=== PATIENT | female | born 1940 | race Caucasian/White ===

== ENCOUNTER → 2016-12-04 | Outpatient (CLI) | payer OTHER ==
[~2016-12-04] MED LIST: ASPI325T OR; ATEN100T OR; FISH300C2 OR; GLUC1000 OR; LISI20TA5 OR; LOVA40TA OR; MEGE40TA2 OR; OSTEO BI FLEX OR; TRIM OR
--- NOTE | 2016-12-04 13:14 | REPMRS ---
Patient History The patient states she had a clinical breast exam in 11/2016. Patient is postmenopausal and has history of endometrial cancer at age 69. Family history of prostate cancer in brother at age 50 or over. Digital Woman Screen Mammo: December 04, 2016 - Exam #: [id number] Bilateral CC and MLO view(s) were taken. Technologist: Bisi Khan, Technologist Prior study comparison: December 03, 2015, digital woman screen mammo performed at [facility]. November 16, 2014, digital woman screen mammo performed at [facility]. FINDINGS: There are scattered fibroglandular densities. There has been no change in the appearance of the mammogram from the prior studies. There is a mild amount of residual fibroglandular tissue which is fairly symmetric. There is no interval development of dominant mass, architectural distortion, or clustered microcalcification suggestive of malignancy. ASSESSMENT: BI-RADS/ACR category 1 mammogram. Negative. Recommendation Routine screening mammogram in 1 year (for women over age 40). This mammogram was interpreted with the aid of an FDA-approved computer-aided dectection system. Electronically Signed By: Ashok Nowak MD 12/04/16 1761
== END ==
LOC: M WHC 10:15
PROVIDERS: ATTEND Nurse Practitioner Family
DX: Z01.419 Encounter for gynecological examination (general) (routine) without abnormal findings (principal); Z12.31 Encounter for screening mammogram for malignant neoplasm of breast; Z12.12 Encounter for screening for malignant neoplasm of rectum; Z78.0 Asymptomatic menopausal state; Z85.42 Personal history of malignant neoplasm of other parts of uterus
CPT/HCPCS: 82270; G0101; G0123; G0202

== ENCOUNTER → 2016-12-04 | Outpatient (REF) | payer OTHER | LOC: M SFHCWAGY 10:36 | PROVIDERS: ATTEND Nurse Practitioner Family | DX: Z01.419 Encounter for gynecological examination (general) (routine) without abnormal findings (principal); Z12.12 Encounter for screening for malignant neoplasm of rectum; L29.2 Pruritus vulvae; Z85.44 Personal history of malignant neoplasm of other female genital organs ==

== ENCOUNTER → 2016-12-30 | Outpatient (CLI) | payer OTHER ==
[2016-12-30 09:46] LABS: ANION GAP 10 MEQ/L (8-16); BLOOD UREA NITROGEN 20 MG/DL (7-18); CALCIUM LEVEL 9.2 MG/DL (8.8-10.2); CARBON DIOXIDE LEVEL 29 MEQ/L (21-32); CHLORIDE LEVEL 103 MEQ/L (98-107); CREATININE FOR GFR 0.84 MG/DL (0.55-1.02); GLOMERULAR FILTRATION RATE > 60.0 (>39); GLUCOSE, FASTING 138 MG/DL (83-110); POTASSIUM SERUM 4.4 MEQ/L (3.5-5.1); SODIUM LEVEL 142 MEQ/L (136-145)
--- NOTE | 2016-12-30 13:36 | ECGEPIP ---
Stationary ECG Study [facility] Test Date: 2016-12-30 Pat Name: GIANCARLO BELTRÁN Department: Room: - Gender: F Manufacturing Software Engineer: [id number] : [id number] Requested By: SUZETTE Thomas Order Number: [id number] Reading MD: Neal Monique Measurements Intervals [place] Rate: 71 P: 0 MT: 219 QRS: -13 QRSD: 110 T: 18 QT: 354 QTc: 387 Interpretive Statements SINUS RHYTHM WITH FIRST DEGREE AV BLOCK ANTERIOR MYOCARDIAL INFARCTION, OF INDETERMINATE AGE INFERIOR MYOCARDIAL INFARCTION, PROBABLY OLD No prior ECG available for comparison at the time of interpretation. Electronically Signed On 12-30-2016 13:36:04 EDT by Neal Monique
--- NOTE | 2016-12-31 09:40 | REP ---
CHEST X-RAY PA AND LATERAL: 12/30/2016. Comparison: 03/30/2010 portable chest, 05/12/2009 chest x-ray. Clinical history: Coronary artery disease. Findings: There are sternotomy wires and clips in the mediastinum from prior CABG. Lungs are hyperinflated on the lateral view. There is some cardiomegaly with left atrial and ventricular enlargement. There is no vascular redistribution or pulmonary edema. No effusion, infiltrate, atelectasis or mass. There is no dense consolidation. Minor lateral pleural thickening and apical pleural thickening noted. Bones show degenerative changes in the spine and shoulders without compression deformity. No free air. Impression: 1. Mild cardiomegaly with left atrial and ventricular enlargement and prior CABG. No effusion, edema or acute infiltrate. Signed by Lit Lackey MD 12/31/2016 05:52 P
== END ==
LOC: M LAB 08:43
PROVIDERS: ATTEND Ophthalmology
DX: H25.12 Age-related nuclear cataract, left eye (principal); E78.5 Hyperlipidemia, unspecified; E11.9 Type 2 diabetes mellitus without complications; I51.7 Cardiomegaly; Z95.1 Presence of aortocoronary bypass graft

== ENCOUNTER 2017-05-19 18:33 | Emergency (ER) | payer OTHER ==
[~2017-05-19] VITALS: Ht 167.6 cm; Wt 107.0 kg
[2017-05-19] MEDS ORDERED: GLIP2.5T6 PO (18:48)
[2017-05-19] MEDS ORDERED: ALLO10TA PO (18:48)
[2017-05-19] MEDS ORDERED: ASPI81TA85 PO (18:48)
[2017-05-19] MEDS ORDERED: ESCI10TA2 PO (18:48)
[2017-05-19] MEDS ORDERED: CARV25TA PO (18:48)
[2017-05-19] MEDS ORDERED: LOSA25TA8 PO (18:48)
[2017-05-19] MEDS ORDERED: PERCOCET 5MG/325MG TAB PO ONE ×2 (19:00→21:15)
--- NOTE | 2017-05-19 19:26 | REP ---
Clinical: Trauma. Technique: Axial noncontrast images through the facial bones to include the mandible with coronal and sagittal re-formations. Findings: There is a large hematoma and contusion overlying the frontal bone and right periorbital soft tissue. A subtle nasal bone fracture is suggested. The remainder of the osseous structures appear intact without further evidence for acute fracture. Specifically, the bilateral zygomatic arches and mandible including bilateral temporomandibular joints appear normal and symmetric. The sinuses and mastoid air cells are all well aerated and clear without fluid level to suggest occult trauma. The bilateral orbits including the globes and intraconal contents appear symmetric and normal. Impression: 1. Hematoma and traumatic infiltration to the subcutaneous tissues overlying the frontal bone and extending to the right periorbital region. 2. Subtle nasal bone fractures suggested. Signed by Mayur Umanzor MD 05/19/2017 07:17 P
[2017-05-19 21:17] VITALS: BP 168/72
== END 2017-05-19 21:20 | disposition home or self-care (01) ==
LOC: M ED 18:33
DX: S02.2XXA Fracture of nasal bones, initial encounter for closed fracture (principal); S00.83XA Contusion of other part of head, initial encounter; W01.198A Fall on same level from slipping, tripping and stumbling with subsequent striking against other object, initial encounter; Y92.099 Unspecified place in other non-institutional residence as the place of occurrence of the external cause; Y93.01 Activity, walking, marching and hiking; Y99.9 Unspecified external cause status

== ENCOUNTER → 2017-12-04 | Outpatient (REF) | payer OTHER | LOC: M SFHCWAGY 10:56 | DX: Z01.419 Encounter for gynecological examination (general) (routine) without abnormal findings (principal); Z85.44 Personal history of malignant neoplasm of other female genital organs ==

== ENCOUNTER → 2017-12-04 | Outpatient (CLI) | payer OTHER | LOC: M WHC 10:20 | DX: Z12.31 Encounter for screening mammogram for malignant neoplasm of breast (principal); Z78.0 Asymptomatic menopausal state; Z80.41 Family history of malignant neoplasm of ovary; Z85.42 Personal history of malignant neoplasm of other parts of uterus; N81.10 Cystocele, unspecified; R32 Unspecified urinary incontinence; Z08 Encounter for follow-up examination after completed treatment for malignant neoplasm; Z12.4 Encounter for screening for malignant neoplasm of cervix; Z12.12 Encounter for screening for malignant neoplasm of rectum; Z90.710 Acquired absence of both cervix and uterus; Z85.44 Personal history of malignant neoplasm of other female genital organs | CPT/HCPCS: 77067; G0123 ==

== ENCOUNTER → 2018-09-09 | Outpatient (REF) | payer OTHER, MEDICARE ==
[~2018-09-09] MED LIST changes: +ALLO10TA PO; +ASPI81TA85 PO; +CARV25TA PO; +ESCI10TA2 PO; +GLIP2.5T6 PO; +LOSA25TA14 PO
== END ==
LOC: M SFHCPLAZ 10:11
PROVIDERS: ATTEND Dermatology
DX: C44.329 Squamous cell carcinoma of skin of other parts of face (principal); D22.39 Melanocytic nevi of other parts of face
CPT/HCPCS: 11102; 11103; 17000; 17003; 88305; G0463

== ENCOUNTER → 2018-10-22 | Outpatient (REF) | payer MEDICARE | LOC: M SFHCPLAZ 17:38 | PROVIDERS: ATTEND Dermatology | DX: D04.30 Carcinoma in situ of skin of unspecified part of face (principal) ==

== ENCOUNTER → 2019-12-16 | Outpatient (REF) | payer MEDICARE ==
[~2019-12-16] MED LIST changes: -ASPI81TA85 PO; +ASPI81TA86 PO
[2019-12-16 15:23] LABS: APPEARANCE, URINE CLEAR (CLEAR); BACTERIA, URINE AUTO NEGATIVE (NEGATIVE); BILIRUBIN, URINE AUTO NEGATIVE (NEGATIVE); BLOOD, URINE BLOOD NEGATIVE (NEGATIVE); COLOR, URINE YELLOW (YELLOW); GLUCOSE, URINE (UA) AUTO NEGATIVE (NEGATIVE); KETONE, URINE AUTO NEGATIVE (NEGATIVE); LEUKOCYTE ESTERASE, URINE AUTO NEGATIVE (NEGATIVE); NITRITE, URINE AUTO NEGATIVE (NEGATIVE); PROTEIN, URINE AUTO NEGATIVE (NEGATIVE); RBC, URINE AUTO 0 /HPF (0-3); SQUAMOUS EPITHELIAL CELL UR AU 1 /HPF (0-6); WBC, URINE AUTO 1 /HPF (0-3)
[2019-12-16 15:28] LABS: BLOOD UREA NITROGEN 26 MG/DL (7-18); CALCIUM LEVEL 9.8 MG/DL (8.8-10.2); CARBON DIOXIDE LEVEL 31 MEQ/L (21-32); CHLORIDE LEVEL 105 MEQ/L (98-107); CHOLESTEROL LEVEL 159 MG/DL (<200); CHOLESTEROL RISK RATIO 3.456 (<5); CREATININE FOR GFR 0.89 MG/DL (0.55-1.30); GLOMERULAR FILTRATION RATE > 60.0 (>39); GLUCOSE, FASTING 104 MG/DL (70-100); HDL CHOLESTEROL 46 MG/DL (>40); LDL CHOLESTEROL 80 MG/DL (<100); NON-HDL-C 113 MG/DL; POTASSIUM SERUM 4.5 MEQ/L (3.5-5.1); SODIUM LEVEL 142 MEQ/L (136-145); TRIGLYCERIDES LEVEL 165 MG/DL (<150); URIC ACID 7.4 MG/DL (2.6-6.0)
[2019-12-16 15:46] LABS: HEMOGLOBIN A1c 6.2 %
[2019-12-16 16:03] LABS: CREATININE, URINE 92.8 MG/DL; MALB URINE SIEMENS 5.5 MG/L; MAU/CREAT RATIO 5.9 MCG/MG (0.0-30.0)
== END ==
LOC: M SFHCPLAZ 13:30
PROVIDERS: ATTEND Family Medicine
DX: E11.42 Type 2 diabetes mellitus with diabetic polyneuropathy (principal); E78.2 Mixed hyperlipidemia; I10 Essential (primary) hypertension; N39.41 Urge incontinence; M1A.9XX0 Chronic gout, unspecified, without tophus (tophi)
CPT/HCPCS: 36415; 80048; 80061; 81001; 82043; 83036; 84550; 87086; G0463

== ENCOUNTER → 2020-03-10 | Outpatient (REF) | payer MEDICARE ==
[2020-03-10 17:17] LABS: APPEARANCE, URINE CLEAR (CLEAR); BACTERIA, URINE AUTO NEGATIVE (NEGATIVE); BILIRUBIN, URINE AUTO NEGATIVE (NEGATIVE); BLOOD, URINE BLOOD NEGATIVE (NEGATIVE); COLOR, URINE YELLOW (YELLOW); GLUCOSE, URINE (UA) AUTO NEGATIVE (NEGATIVE); KETONE, URINE AUTO NEGATIVE (NEGATIVE); LEUKOCYTE ESTERASE, URINE AUTO NEGATIVE (NEGATIVE); NITRITE, URINE AUTO NEGATIVE (NEGATIVE); PROTEIN, URINE AUTO NEGATIVE (NEGATIVE); RBC, URINE AUTO 1 /HPF (0-3); SPECIFIC GRAVITY URINE AUTO 1.019 (1.002-1.035); SQUAMOUS EPITHELIAL CELL UR AU 1 /HPF (0-6); UROBILINOGEN, URINE AUTO 0.2 mg/dL (0.0-2.0); WBC, URINE AUTO 1 /HPF (0-3)
== END ==
LOC: M LAB REF 16:36
PROVIDERS: ATTEND Obstetrics & Gynecology
DX: N39.42 Incontinence without sensory awareness (principal)

== ENCOUNTER → 2020-03-29 | Outpatient (REF) | payer MEDICARE ==
[2020-03-29 17:12] LABS: BLOOD UREA NITROGEN 19 MG/DL (7-18); CALCIUM LEVEL 9.5 MG/DL (8.8-10.2); CARBON DIOXIDE LEVEL 34 MEQ/L (21-32); CHLORIDE LEVEL 102 MEQ/L (98-107); CREATININE FOR GFR 0.95 MG/DL (0.55-1.30); GLOMERULAR FILTRATION RATE > 60.0 (>39); GLUCOSE, FASTING 147 MG/DL (70-100); POTASSIUM SERUM 4.8 MEQ/L (3.5-5.1); SODIUM LEVEL 140 MEQ/L (136-145)
[2020-03-29 20:19] LABS: HEMOGLOBIN A1c 7.7 %
== END ==
LOC: M SFHCPLAZ 10:59
PROVIDERS: ATTEND Family Medicine
DX: E11.42 Type 2 diabetes mellitus with diabetic polyneuropathy (principal); I10 Essential (primary) hypertension

== ENCOUNTER → 2020-04-08 | Outpatient (CLI) | payer MEDICARE ==
--- NOTE | 2020-04-08 17:22 | DEXA ---
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 Status post left hip replacement. COMPARISON: March 02, 2011 and November 13, 2001. TECHNIQUE: Bone density was measured using dual-energy x-ray absorptionmetry (DEXA). FINDINGS: AP SPINE L1-L4 BMD 1.859 g/cm2 Young Adult T-Score 5.4 Age Matched Z-Score 7.2. RT FEMUR, TOTAL BMD 0.951 g/cm2 Young Adult T-Score -0.4 Age Matched Z-Score 1.5. RT NECK BMD 0.884 g/cm2 Young Adult T-Score -1.1 Age Matched Z-Score 1.0. IMPRESSION: There is normal bone density of the spine. There are degenerative disc changes with associated sclerosis in the lumbar spine which may artificially elevate the bone densitometry of the spine. There is low bone density of the right hip. The density of the spine has increased 18.0% since the initial exam on November 13, 2001. The density of the spine increased 9.4% since most recent exam on March 02, 2011 The density of the right hip has decreased 9.7% since the initial exam on November 13, 2001. The density of the right hip has decreased 5.1% since the most recent exam on March 02, 2011. FOLLOW-UP: Recommendation for the next bone density exam: 2 years. <Electronically signed by Elia Queen > 04/08/20 0252
== END ==
LOC: M WHC 11:30
PROVIDERS: ATTEND Family Medicine
DX: M81.0 Age-related osteoporosis without current pathological fracture (principal); M85.851 Other specified disorders of bone density and structure, right thigh; M51.36 Other intervertebral disc degeneration, lumbar region; Z96.642 Presence of left artificial hip joint

== ENCOUNTER 2020-04-20 20:04 | Emergency (ER) | payer MEDICARE ==
[~2020-04-20] VITALS: Ht 167.6 cm; Wt 104.5 kg
[2020-04-20 22:03] VITALS: BP 172/74
== END 2020-04-20 22:06 | disposition home or self-care (01) ==
LOC: M ED 20:04
DX: S00.03XA Contusion of scalp, initial encounter (principal); W22.8XXA Striking against or struck by other objects, initial encounter; Y92.019 Unspecified place in single-family (private) house as the place of occurrence of the external cause; Y93.9 Activity, unspecified; I11.9 Hypertensive heart disease without heart failure; E11.9 Type 2 diabetes mellitus without complications; Z79.82 Long term (current) use of aspirin; Z79.84 Long term (current) use of oral hypoglycemic drugs; Z79.899 Other long term (current) drug therapy

== ENCOUNTER → 2020-09-28 | Outpatient (REF) | payer MEDICARE ==
[~2020-09-28] MED LIST changes: +ESCI10TA16 PO; -ESCI10TA2 PO
[2020-09-28 14:25] LABS: HEMOGLOBIN A1c 6.5 %
[2020-09-28 14:29] LABS: BLOOD UREA NITROGEN 21 MG/DL (7-18); CALCIUM LEVEL 9.3 MG/DL (8.8-10.2); CARBON DIOXIDE LEVEL 29 MEQ/L (21-32); CHLORIDE LEVEL 105 MEQ/L (98-107); CHOLESTEROL LEVEL 142 MG/DL (<200); CHOLESTEROL RISK RATIO 2.958 (<5); CREATININE FOR GFR 0.89 MG/DL (0.55-1.30); GLOMERULAR FILTRATION RATE > 60.0 (>32); GLUCOSE, FASTING 132 MG/DL (70-100); HDL CHOLESTEROL 48 MG/DL (>40); LDL CHOLESTEROL 59 MG/DL (<100); NON-HDL-C 94 MG/DL; POTASSIUM SERUM 4.5 MEQ/L (3.5-5.1); SODIUM LEVEL 140 MEQ/L (136-145); TRIGLYCERIDES LEVEL 173 MG/DL (<150)
[2020-09-28 14:37] LABS: MAU/CREAT RATIO 41.4 MCG/MG (0.0-30.0)
== END ==
LOC: M SFHCPLAZ 11:02
PROVIDERS: ATTEND Family Medicine
DX: E11.42 Type 2 diabetes mellitus with diabetic polyneuropathy (principal); E78.2 Mixed hyperlipidemia; I10 Essential (primary) hypertension
CPT/HCPCS: 36415; 80048; 80061; 82043; 83036; G0463

== ENCOUNTER → 2021-03-31 | Outpatient (CLI) | payer MEDICARE ==
[2021-03-31 14:00] LABS: HEMOGLOBIN A1c 6.4 %
[2021-03-31 14:19] LABS: BLOOD UREA NITROGEN 23 MG/DL (7-18); CARBON DIOXIDE LEVEL 30 MEQ/L (21-32); CHLORIDE LEVEL 103 MEQ/L (98-107); GLOMERULAR FILTRATION RATE > 60.0 (>32); GLUCOSE, FASTING 122 MG/DL (70-100); POTASSIUM SERUM 4.9 MEQ/L (3.5-5.1); SODIUM LEVEL 139 MEQ/L (136-145)
[2021-03-31 14:23] LABS: TOTAL 25(OH) VITAMIN D 49.8 NG/ML (30.0-100.0)
== END ==
LOC: M PLALAB 11:15
PROVIDERS: ATTEND Family Medicine
DX: E11.42 Type 2 diabetes mellitus with diabetic polyneuropathy (principal); I10 Essential (primary) hypertension; E55.9 Vitamin D deficiency, unspecified

== ENCOUNTER → 2021-07-27 | Outpatient (CLI) | payer MEDICARE ==
[~2021-07-27] MED LIST changes: +LOSA25TA13 PO; -LOSA25TA14 PO
== END ==
LOC: M PLALAB 14:19
PROVIDERS: ATTEND Family Medicine
DX: M16.11 Unilateral primary osteoarthritis, right hip (principal); M25.351 Other instability, right hip

== ENCOUNTER 2021-08-23 10:28 | Outpatient (RCR) | payer MEDICARE | END 2021-08-25 | LOC: M PT 10:28 | PROVIDERS: ATTEND Family Medicine | DX: M25.351 Other instability, right hip (principal) ==

== ENCOUNTER → 2021-08-31 | Outpatient (CLI) | payer MEDICARE ==
[2021-08-31 12:51] LABS: BACTERIA, URINE AUTO NEGATIVE (NEGATIVE); RBC, URINE AUTO 3 /HPF (0-3); SQUAMOUS EPITHELIAL CELL UR AU 1 /HPF (0-6); WBC, URINE AUTO 1 /HPF (0-3)
== END ==
LOC: M LAB 10:19
PROVIDERS: ATTEND Registered Nurse Emergency
DX: R82.998 Other abnormal findings in urine (principal)

== ENCOUNTER 2021-09-20 12:33 | Outpatient (RCR) | payer MEDICARE | END 2021-09-24 | LOC: M PT 12:33 | PROVIDERS: ATTEND Family Medicine | DX: M25.351 Other instability, right hip (principal) ==

== ENCOUNTER 2021-10-04 09:55 | Outpatient (RCR) | payer MEDICARE | END 2021-10-25 | LOC: M PT 09:55 | PROVIDERS: ATTEND Family Medicine | DX: M25.351 Other instability, right hip (principal) ==

== ENCOUNTER → 2021-10-06 | Outpatient (CLI) | payer MEDICARE ==
[2021-10-06 16:26] LABS: HEMOGLOBIN A1c 6.5 %
[2021-10-06 16:28] LABS: BLOOD UREA NITROGEN 23 MG/DL (7-18); CALCIUM LEVEL 9.5 MG/DL (8.8-10.2); CARBON DIOXIDE LEVEL 33 MEQ/L (21-32); CHLORIDE LEVEL 104 MEQ/L (98-107); CHOLESTEROL LEVEL 140 MG/DL (<200); CHOLESTEROL RISK RATIO 2.545 (<5); CREATININE FOR GFR 0.72 MG/DL (0.55-1.30); GLOMERULAR FILTRATION RATE > 60.0 (>32); GLUCOSE, FASTING 110 MG/DL (70-100); HDL CHOLESTEROL 55 MG/DL (>40); LDL CHOLESTEROL 58 MG/DL (<100); NON-HDL-C 85 MG/DL; POTASSIUM SERUM 4.9 MEQ/L (3.5-5.1); SODIUM LEVEL 139 MEQ/L (136-145); TRIGLYCERIDES LEVEL 137 MG/DL (<150)
[2021-10-06 16:36] LABS: CREATININE, URINE 79.2 MG/DL; MALB URINE SIEMENS 7.3 MG/L; MAU/CREAT RATIO 9.2 MCG/MG (0.0-30.0)
== END ==
LOC: M PLALAB 11:50
PROVIDERS: ATTEND Family Medicine
DX: E11.42 Type 2 diabetes mellitus with diabetic polyneuropathy (principal); E78.2 Mixed hyperlipidemia; I10 Essential (primary) hypertension

== ENCOUNTER 2022-04-01 13:51 | Emergency (ER) | payer MEDICARE ==
[~2022-04-01] VITALS: Ht 170.2 cm; Wt 97.7 kg
[2022-04-01 14:53] LABS: HEMATOCRIT 39.7 % (36.0-47.0); HEMOGLOBIN 12.8 g/dl (12.0-15.5); MEAN CORPUSCULAR HEMOGLOBIN 29.5 pg (27.0-33.0); MEAN CORPUSCULAR HGB CONC 32.2 g/dl (32.0-36.5); MEAN CORPUSCULAR VOLUME 91.5 fl (80.0-96.0); PLATELET COUNT, AUTOMATED 182 10^3/uL (150-450); RED BLOOD COUNT 4.34 10^6/uL (4.00-5.40)
[2022-04-01 15:05] LABS: ATYPICAL LYMPH 3 % (0-5); BASOPHILS 1 % (0-1); EOSINOPHILS 1 % (0-3); LYMPHOCYTES 21 % (16-44); MONOCYTES 15 % (0-5); NEUTROPHILS 59 % (28-66); PLATELET ESTIMATE NORMAL (NORMAL)
[2022-04-01] MEDS ORDERED: NIRM1TAB (15:09)
[2022-04-01] MEDS ORDERED: METF500T13 (15:09)
[2022-04-01 15:39] LABS: ALBUMIN 3.1 GM/DL (3.2-5.2); ALT/SGPT 23 U/L (12-78); BILIRUBIN,TOTAL 0.3 MG/DL (0.2-1.0); BLOOD UREA NITROGEN 21 MG/DL (7-18); CALCIUM LEVEL 9.4 MG/DL (8.8-10.2); CARBON DIOXIDE LEVEL 31 MEQ/L (21-32); CHLORIDE LEVEL 101 MEQ/L (98-107); GLOMERULAR FILTRATION RATE > 60.0 (>32); GLUCOSE, FASTING 115 MG/DL (70-100); POTASSIUM SERUM 4.6 MEQ/L (3.5-5.1); SODIUM LEVEL 139 MEQ/L (136-145); TOTAL PROTEIN 6.7 GM/DL (6.4-8.2)
[2022-04-01 16:04] VITALS: BP 102/55
== END 2022-04-01 16:12 | disposition home or self-care (01) ==
LOC: M ED 13:51
DX: U07.1 COVID-19 (principal); I25.2 Old myocardial infarction; E11.9 Type 2 diabetes mellitus without complications; I10 Essential (primary) hypertension; E78.5 Hyperlipidemia, unspecified; Z86.79 Personal history of other diseases of the circulatory system; Z88.8 Allergy status to other drugs, medicaments and biological substances; Z79.4 Long term (current) use of insulin; Z79.811 Long term (current) use of aromatase inhibitors; Z79.899 Other long term (current) drug therapy

== ENCOUNTER → 2022-04-12 | Outpatient (REF) | payer MEDICARE ==
[~2022-04-12] MED LIST changes: +METF500T13; +NIRM1TAB
[2022-04-13 18:45] LABS: APPEARANCE, URINE MANUAL CLEAR (CLEAR); BILIRUBIN, URINE MANUAL NEGATIVE (NEGATIVE); BLOOD URINE MANUAL NEGATIVE (NEGATIVE); COLOR, URINE MANUAL YELLOW (YELLOW); GLUCOSE, URINE (UA) MANUAL NEGATIVE (NEGATIVE); KETONE, URINE MANUAL NEGATIVE (NEGATIVE); LEUKOCYTE ESTERASE, URINE MAN NEGATIVE (NEGATIVE); NITRITE, URINE MANUAL NEGATIVE (NEGATIVE); PROTEIN, URINE MANUAL NEGATIVE (NEGATIVE); UROBILINOGEN, URINE MANUAL NORMAL (NORMAL)
== END ==
LOC: M SFHCPLAZ 16:47
PROVIDERS: ATTEND Physician Assistant
DX: R31.21 Asymptomatic microscopic hematuria (principal)
CPT/HCPCS: 88108; 90682; G0008; G0463

== ENCOUNTER → 2023-01-11 | Outpatient (CLI) | payer MEDICARE ==
[2023-01-11 14:21] LABS: HEMOGLOBIN A1c 6.2 % (4.0-6.0)
== END ==
LOC: M PLALAB 10:01
PROVIDERS: ATTEND Family Medicine
DX: E11.42 Type 2 diabetes mellitus with diabetic polyneuropathy (principal); M81.0 Age-related osteoporosis without current pathological fracture

== ENCOUNTER → 2023-01-23 | Outpatient (CLI) | payer MEDICARE | LOC: M WHC 13:25 | PROVIDERS: ATTEND Family Medicine | DX: M81.0 Age-related osteoporosis without current pathological fracture (principal); M85.89 Other specified disorders of bone density and structure, multiple sites ==

== ENCOUNTER → 2023-02-07 | Outpatient (CLI) | payer MEDICARE ==
[2023-02-07 16:05] LABS: APPEARANCE, URINE CLOUDY (CLEAR); BACTERIA, URINE AUTO 3+ (NEGATIVE); BILIRUBIN, URINE AUTO NEGATIVE (NEGATIVE); BLOOD, URINE BLOOD 3+ (NEGATIVE); COLOR, URINE AMBER (YELLOW); GLUCOSE, URINE (UA) AUTO NEGATIVE (NEGATIVE); KETONE, URINE AUTO NEGATIVE (NEGATIVE); LEUKOCYTE ESTERASE, URINE AUTO 3+ (NEGATIVE); MUCUS, URINE SMALL (NEGATIVE); NITRITE, URINE AUTO NEGATIVE (NEGATIVE); PROTEIN, URINE AUTO 2+ mg/dL (NEGATIVE); RBC, URINE AUTO 83 /HPF (0-3); SPECIFIC GRAVITY URINE AUTO 1.017 (1.002-1.035); SQUAMOUS EPITHELIAL CELL UR AU 2 /HPF (0-6); TRANSITIONAL EPITHELIAL AUTO 1 /HPF; UROBILINOGEN, URINE AUTO 0.2 mg/dL (0.0-2.0); WBC, URINE AUTO TNTC /HPF (0-3)
== END ==
LOC: M PLALAB 12:21
PROVIDERS: ATTEND Physician Assistant
DX: N39.0 Urinary tract infection, site not specified (principal)

== ENCOUNTER → 2023-08-07 | Outpatient (CLI) | payer MEDICARE, MEDICAID ==
[2023-08-07 16:07] LABS: ALKALINE PHOSPHATASE 67 U/L (46-116); ALT/SGPT 21 U/L (7.0-40); AST/SGOT 13 U/L (<34); BILIRUBIN,TOTAL 0.3 MG/DL (0.3-1.2); BLOOD UREA NITROGEN 24 MG/DL (9-23); CALCIUM LEVEL 9.2 MG/DL (8.3-10.6); CARBON DIOXIDE LEVEL 32 MMOL/L (20-31); CHLORIDE LEVEL 103 MMOL/L (98-107); CHOLESTEROL LEVEL 112 MG/DL (<200); CHOLESTEROL RISK RATIO 2.47 (<5); CREATININE FOR GFR 0.65 MG/DL (0.55-1.30); GLOMERULAR FILTRATION RATE > 60.0 (>32); GLUCOSE, FASTING 135 MG/DL (74-106); HDL CHOLESTEROL 45.3 MG/DL (>40); LDL CHOLESTEROL 49.5 MG/DL (<100); NON-HDL-C 66.7 MG/DL; POTASSIUM SERUM 4.7 MMOL/L (3.5-5.1); SODIUM LEVEL 140 MMOL/L (136-145); TOTAL PROTEIN 6.2 G/DL (5.7-8.2); TRIGLYCERIDES LEVEL 86 MG/DL (<150)
[2023-08-07 16:09] LABS: TOTAL 25(OH) VITAMIN D 50.8 NG/ML (20.0-100.0)
[2023-08-07 16:39] LABS: HEMOGLOBIN A1c 6.4 % (4.0-6.0)
== END ==
LOC: M PLALAB 12:18
PROVIDERS: ATTEND Family Medicine
DX: E11.42 Type 2 diabetes mellitus with diabetic polyneuropathy (principal); M81.0 Age-related osteoporosis without current pathological fracture; E78.2 Mixed hyperlipidemia; Z12.11 Encounter for screening for malignant neoplasm of colon

== ENCOUNTER → 2024-03-18 | Outpatient (CLI) | payer MEDICARE, MEDICAID ==
[2024-03-18 16:43] LABS: ALKALINE PHOSPHATASE 63 U/L (46-116); ALT/SGPT 14 U/L (7.0-40); AST/SGOT 10 U/L (<34); BILIRUBIN,TOTAL 0.4 MG/DL (0.3-1.2); BLOOD UREA NITROGEN 21 MG/DL (9-23); CALCIUM LEVEL 9.8 MG/DL (8.3-10.6); CARBON DIOXIDE LEVEL 30 MMOL/L (20-31); CHLORIDE LEVEL 105 MMOL/L (98-107); CREATININE FOR GFR 0.68 MG/DL (0.55-1.30); GLOMERULAR FILTRATION RATE > 60.0 (>32); GLUCOSE, FASTING 102 MG/DL (74-106); POTASSIUM SERUM 4.9 MMOL/L (3.5-5.1); SODIUM LEVEL 142 MMOL/L (136-145); TOTAL 25(OH) VITAMIN D 58.6 NG/ML (20.0-100.0); TOTAL PROTEIN 6.8 G/DL (5.7-8.2)
[2024-03-18 17:28] LABS: HEMOGLOBIN A1c 6.4 % (4.0-6.0)
== END ==
LOC: M PLALAB 13:11
PROVIDERS: ATTEND Family Medicine
DX: E11.42 Type 2 diabetes mellitus with diabetic polyneuropathy (principal); M81.0 Age-related osteoporosis without current pathological fracture

== ENCOUNTER → 2024-09-11 | Outpatient (CLI) | payer MEDICARE, MEDICAID ==
[~2024-09-11] MED LIST changes: +GLIP2.5T46 PO; -GLIP2.5T6 PO
[2024-09-11 15:06] LABS: HEMATOCRIT 36.3 % (36.0-47.0); HEMOGLOBIN 11.2 g/dl (12.0-15.5); MEAN CORPUSCULAR HEMOGLOBIN 29.7 pg (27.0-33.0); MEAN CORPUSCULAR HGB CONC 30.9 g/dl (32.0-36.5); MEAN CORPUSCULAR VOLUME 96.3 fl (80.0-96.0); PLATELET COUNT, AUTOMATED 209 10^3/uL (150-450); RED BLOOD COUNT 3.77 10^6/uL (4.00-5.40); WHITE BLOOD COUNT 9.5 10^3/uL (4.0-10.0)
[2024-09-11 15:52] LABS: ALBUMIN 2.8 G/DL (3.2-5.2); BILIRUBIN,TOTAL 0.3 MG/DL (0.3-1.2); CALCIUM LEVEL 9.4 MG/DL (8.3-10.6); CREATININE FOR GFR 0.74 MG/DL (0.55-1.30); GLOMERULAR FILTRATION RATE 79.7 (>32); POTASSIUM SERUM 4.7 MMOL/L (3.5-5.1); TOTAL PROTEIN 6.5 G/DL (5.7-8.2)
[2024-09-11 17:50] LABS: HEMOGLOBIN A1c 6.2 % (4.0-6.0)
== END ==
LOC: M PLALAB 10:30
PROVIDERS: ATTEND Family Medicine
DX: E11.42 Type 2 diabetes mellitus with diabetic polyneuropathy (principal); R06.02 Shortness of breath

== ENCOUNTER → 2024-10-07 | Outpatient (CLI) | payer MEDICARE, MEDICAID ==
[2024-10-07 15:45] LABS: HEMATOCRIT 37.2 % (36.0-47.0); HEMOGLOBIN 11.8 g/dl (12.0-15.5); MEAN CORPUSCULAR HEMOGLOBIN 29.8 pg (27.0-33.0); MEAN CORPUSCULAR HGB CONC 31.7 g/dl (32.0-36.5); MEAN CORPUSCULAR VOLUME 93.9 fl (80.0-96.0); PLATELET COUNT, AUTOMATED 229 10^3/uL (150-450); RED BLOOD COUNT 3.96 10^6/uL (4.00-5.40)
[2024-10-07 15:52] LABS: CALCIUM LEVEL 9.8 MG/DL (8.3-10.6); CREATININE FOR GFR 0.8 MG/DL (0.55-1.30); GLOMERULAR FILTRATION RATE 72.6 (>32)
== END ==
LOC: M PLALAB 13:07
PROVIDERS: ATTEND Nurse Practitioner Adult Health
DX: I34.2 Nonrheumatic mitral (valve) stenosis (principal); I25.10 Atherosclerotic heart disease of native coronary artery without angina pectoris; R06.09 Other forms of dyspnea

== ENCOUNTER → 2024-12-03 | Outpatient (CLI) | payer MEDICARE, MEDICAID ==
[2024-12-03 10:22] LABS: INR 3.56
== END ==
LOC: M PLALAB 09:14
PROVIDERS: ATTEND Nurse Practitioner Adult Health
DX: I48.91 Unspecified atrial fibrillation (principal)

== ENCOUNTER → 2024-12-10 | Outpatient (CLI) | payer MEDICARE, MEDICAID ==
[2024-12-10 10:10] LABS: INR 3.6
== END ==
LOC: M PLALAB 09:05
PROVIDERS: ATTEND Nurse Practitioner Adult Health
DX: I48.91 Unspecified atrial fibrillation (principal)

== ENCOUNTER → 2024-12-16 | Outpatient (CLI) | payer MEDICARE, MEDICAID ==
[2024-12-16 12:33] LABS: INR 2.39
== END ==
LOC: M PLALAB 09:21
PROVIDERS: ATTEND Nurse Practitioner Adult Health
DX: I48.91 Unspecified atrial fibrillation (principal)

== ENCOUNTER → 2024-12-23 | Outpatient (CLI) | payer MEDICARE, MEDICAID ==
[2024-12-23 13:32] LABS: INR 2.05
== END ==
LOC: M PLALAB 09:59
PROVIDERS: ATTEND Nurse Practitioner Adult Health
DX: I48.91 Unspecified atrial fibrillation (principal)

== ENCOUNTER → 2025-01-06 | Outpatient (CLI) | payer MEDICARE, MEDICAID ==
[2025-01-06 14:01] LABS: INR 3.98
== END ==
LOC: M PLALAB 10:20
PROVIDERS: ATTEND Nurse Practitioner Adult Health
DX: I48.91 Unspecified atrial fibrillation (principal)

== ENCOUNTER → 2025-01-13 | Outpatient (CLI) | payer MEDICARE, MEDICAID ==
[2025-01-13 12:51] LABS: INR 3.67
== END ==
LOC: M PLALAB 10:02
PROVIDERS: ATTEND Nurse Practitioner Adult Health
DX: I48.91 Unspecified atrial fibrillation (principal)

== ENCOUNTER → 2025-01-20 | Outpatient (CLI) | payer MEDICARE, MEDICAID ==
[2025-01-20 13:09] LABS: INR 2.43
== END ==
LOC: M PLALAB 09:31
PROVIDERS: ATTEND Nurse Practitioner Adult Health
DX: I48.91 Unspecified atrial fibrillation (principal)

== ENCOUNTER → 2025-02-03 | Outpatient (CLI) | payer MEDICAID, MEDICARE ==
[2025-02-03 13:51] LABS: INR 4.67
== END ==
LOC: M PLALAB 10:08
PROVIDERS: ATTEND Nurse Practitioner Adult Health
DX: I48.91 Unspecified atrial fibrillation (principal)

== ENCOUNTER → 2025-02-11 | Outpatient (CLI) | payer MEDICARE ==
[2025-02-11 12:59] LABS: INR 2.59
== END ==
LOC: M PLALAB 10:20
PROVIDERS: ATTEND Nurse Practitioner Adult Health
DX: I48.91 Unspecified atrial fibrillation (principal)

== ENCOUNTER → 2025-02-17 | Outpatient (CLI) | payer MEDICARE ==
[2025-02-17 13:06] LABS: INR 3.2
== END ==
LOC: M PLALAB 11:02
PROVIDERS: ATTEND Nurse Practitioner Adult Health
DX: I48.91 Unspecified atrial fibrillation (principal)

== ENCOUNTER → 2025-02-24 | Outpatient (CLI) | payer MEDICARE ==
[2025-02-24 13:10] LABS: INR 2.52
== END ==
LOC: M PLALAB 10:10
PROVIDERS: ATTEND Nurse Practitioner Adult Health
DX: I48.91 Unspecified atrial fibrillation (principal)

== ENCOUNTER 2025-02-27 08:56 | Emergency (ER) | payer MEDICAID, MEDICARE ==
[~2025-02-27] VITALS: Ht 170.2 cm; Wt 95.5 kg
[~2025-02-27 08:56] MED LIST changes: -METF500T13; +METF500T13 PO
[2025-02-27 09:44] LABS: BASO # 0.0 10^3/uL (0.0-0.2); BASO % 0.1 % (0.0-1.0); EOS # 0.1 10^3/uL (0.0-0.5); EOS % 1.2 % (0.0-3.0); LYMPH # 1.3 10^3/uL (1.5-5.0); LYMPH % 12.5 % (24.0-44.0); MONO # 0.6 10^3/uL (0.0-0.8); MONO % 6.3 % (2.0-8.0); NEUTROPHILS # 8.0 10^3/uL (1.5-8.5); NEUTROPHILS % 79.5 % (36.0-66.0); PLATELET COUNT, AUTOMATED 211 10^3/uL (150-450)
[2025-02-27] MEDS ORDERED: POTA-151 PO (10:19)
[2025-02-27] MEDS ORDERED: GABA-1171 PO (10:19)
[2025-02-27 10:24] LABS: CALCIUM LEVEL 8.8 MG/DL (8.3-10.6); CARBON DIOXIDE LEVEL 27 MMOL/L (20-31); CHLORIDE LEVEL 105 MMOL/L (98-107); CREATININE FOR GFR 1.34 MG/DL (0.55-1.30); GLOMERULAR FILTRATION RATE 39.1 (>32); POTASSIUM SERUM 5.9 MMOL/L (3.5-5.1); SODIUM LEVEL 142 MMOL/L (136-145)
[2025-02-27] MEDS ORDERED: FURO20TA2 PO (10:24)
[2025-02-27] MEDS ORDERED: WARF4TAB51 PO ×2 (10:28)
[2025-02-27] MEDS ORDERED: TORS20TA2 PO (10:29)
[2025-02-27] MEDS ORDERED: CLOP75TA2 PO (10:29)
[2025-02-27] MEDS ORDERED: LEXA1TAB PO (10:31)
[2025-02-27] MEDS ORDERED: CELE0.09 PO (10:32)
[2025-02-27] MEDS ORDERED: LOVA40TA PO (10:32)
[2025-02-27] MEDS ORDERED: TYLE650T38 PO (10:34)
[2025-02-27] MEDS ORDERED: CENT1TAB PO (10:36)
[2025-02-27] MEDS ORDERED: D3 S1CAP3 PO (10:36)
[2025-02-27] MEDS ORDERED: ALEN70TA82 PO (10:37)
[2025-02-27] MEDS ORDERED: B-12100021 PO (10:37)
[2025-02-27] MEDS ORDERED: KP F1200 PO (10:39)
[2025-02-27] MEDS ORDERED: PROBCAP14 PO (10:40)
[2025-02-27] MEDS ORDERED: HOME MED LIST COMPLETE! XX SCH (10:45)
[2025-02-27] MEDS: INSULIN LISPRO (NovoLOG) PER UNIT SC SCH (12:00)
[2025-02-27] MEDS ORDERED: GLUCOSE 4 GM CHEW PO PRN (12:05)
[2025-02-27] MEDS ORDERED: GLUCAGON INJ 1 MG VIAL SC PRN (12:05)
[2025-02-27] MEDS ORDERED: DEXTROSE 50% 50 ML SYRINGE IV PRN (12:05)
[2025-02-27] MEDS ORDERED: ONDANSETRON 4MG ORAL DISINTEGRATING TAB SL PRN (12:05)
[2025-02-27 12:36] LABS: CK-MB VALUE MASS 6.6 NG/ML (<3.6); LDH LACTATE DEHYDROGENASE 144 U/L (120-246)
[2025-02-27 12:37] LABS: C REACTIVE PROTEIN QUANTITATIV 2.80 MG/DL (<1.0)
[2025-02-27 12:38] LABS: CPK CREATINE PHOSPHOKINASE 30 U/L (34-145); MB/CK RELATIVE INDEX 22.00 (< OR =4)
[2025-02-27 12:41] LABS: D-DIMER QUANT 1.4 ug/mL (<0.5)
[2025-02-27 12:46] LABS: ALT/SGPT 22 U/L (7.0-40); AST/SGOT 14 U/L (<34); MAGNESIUM LEVEL 1.6 MG/DL (1.8-2.4)
[2025-02-27 12:55] LABS: INR 5.42
[2025-02-27] MEDS: NS (Normal Saline) 0.9% 1,000 ML IV SCH (13:35)
[2025-02-27] MEDS: CALCIUM GLUCONATE 1,000 MG/10 ML VIAL IV ONE (13:36)
[2025-02-27] MEDS: HumuLIN R (REGULAR) INSULIN (NovoLIN R) **100 U/ML** PER UNIT IV ONE (13:36)
[2025-02-27] MEDS: SODIUM BICARBONATE 8.4% INJ 50ML SYRINGE IV ONE (13:36)
[2025-02-27] MEDS: DEXTROSE 50% 50 ML SYRINGE IV ONE (13:36)
[2025-02-27] MEDS: NS 500 ML IV ONE ×2 (13:47→15:35)
[2025-02-27] MEDS ORDERED: PATIROMER SORBITEX CALCIUM 8.4GM POWDER PACKET PO ONE (14:00)
[2025-02-27 14:08] LABS: CALCIUM LEVEL 8.6 MG/DL (8.3-10.6); CARBON DIOXIDE LEVEL 25.0 MMOL/L (20-31); CHLORIDE LEVEL 106.0 MMOL/L (98-107); CREATININE FOR GFR 1.39 MG/DL (0.55-1.30); GLOMERULAR FILTRATION RATE 37.4 (>32); POTASSIUM SERUM 6.2 MMOL/L (3.5-5.1); SODIUM LEVEL 142.0 MMOL/L (136-145)
[2025-02-27] MEDS: MAG SULF 1GM/100ML (MAG RUN) 1 GM in IV 1 EA IV SCH (14:12)
[2025-02-27] MEDS ORDERED: NOREPINEPHRINE 4MG IN D5 250ML 4 MG in IV 1 EA IV SCH (14:50)
[2025-02-27] MEDS ORDERED: cefTRIAXone SOD 1 GM in DEXTROSE 5% (D5W) ADV/MINI-BAG 50 ML IV SCH (15:00)
[2025-02-27 15:36] VITALS: BP 101/52; TEMP 96.7; O2SAT 99
[2025-02-27] MEDS ORDERED: DOXYCYCLINE HYCLATE 100 MG in DEXTROSE 5% (D5W) MINI-BAG PLU 100 ML IV SCH (16:00)
[2025-02-27] MEDS ORDERED: IPRATROPIUM 0.5 MG/ALBUTEROL 2.5 MG INH SOL UD 3 ML NEB SCH (16:00)
[2025-02-27] MEDS ORDERED: REMDESIVIR 200 MG in NS 250 ML IV ONE (16:00)
[2025-02-27] MEDS ORDERED: INSULIN LISPRO (NovoLOG) PER UNIT SC SCH (21:00)
[2025-02-28] MEDS ORDERED: PATIROMER SORBITEX CALCIUM 8.4GM POWDER PACKET PO SCH (12:00)
== END 2025-02-27 15:45 | disposition short-term general hospital (02) ==
LOC: M ED 08:56
DX: R55 Syncope and collapse (principal); I48.91 Unspecified atrial fibrillation; J06.9 Acute upper respiratory infection, unspecified; B97.29 Other coronavirus as the cause of diseases classified elsewhere; I25.2 Old myocardial infarction; E11.9 Type 2 diabetes mellitus without complications; E66.9 Obesity, unspecified; I10 Essential (primary) hypertension; M19.90 Unspecified osteoarthritis, unspecified site; M10.9 Gout, unspecified; F41.9 Anxiety disorder, unspecified; Z86.79 Personal history of other diseases of the circulatory system; Z79.1 Long term (current) use of non-steroidal anti-inflammatories (NSAID); Z79.4 Long term (current) use of insulin; Z79.899 Other long term (current) drug therapy; Z79.01 Long term (current) use of anticoagulants; Z88.8 Allergy status to other drugs, medicaments and biological substances; R06.02 Shortness of breath
CPT/HCPCS: 70450; 71045; 80047; 80048; 80076; 82550; 82553; 82728; 83615; 83735; 83880; 84145; 84443; 84484; 85025; 85379; 85384; 85610; 86140; 87486; 87581; 87633; 87798; 93005; 93041; 94760; 96365; 96366; 96375; 99285; J0612; J1815; J3475